=== PATIENT | male | born 1950 | race Caucasian/White ===

== ENCOUNTER → 2022-11-09 09:05 | Outpatient (BNVA) | payer MEDICARE, OTHER, SELFPAY | PROVIDERS: PCP Family Medicine; Visit Provider Family Medicine | DX: R21 Rash and other nonspecific skin eruption (principal); R19.5 Other fecal abnormalities; N40.0 Benign prostatic hyperplasia without lower urinary tract symptoms; R53.83 Other fatigue; E03.9 Hypothyroidism, unspecified | CPT/HCPCS: 80053; 82607; 84153; 84443; 85025 ==

== ENCOUNTER 2022-11-19 13:46 | Outpatient (CLI) | payer MEDICARE, OTHER, SELFPAY ==
--- NOTE | 2022-11-19 14:00 | US_ITS ---
WS: [id number] TESTICULAR ULTRASOUND HISTORY: N50.89 - Other specified disorders of the male genital or... COMPARISON: None available. TECHNIQUE: Real-time and color Doppler imaging or utilized to perform a testicular ultrasound. Right testicle: 3.4 cm x 2.7 cm x 3.2 cm. Normal size and echogenicity. No mass or torsion. Normal color Doppler is present throughout. Systolic and diastolic velocities are both present. No significant hydrocele. Right epididymis: Multiple simple cyst associated with the epididymal head. The largest measures 4.0 x 3.7 x 2.8 cm. No solid mass. No increased vascularity. Left testicle: 3.5 cm x 2.2 cm x 2.2 cm. Normal size and echogenicity. No mass or torsion. Normal color Doppler is present throughout. Systolic and diastolic velocities are both present. No significant hydrocele. Left epididymis: Very small cyst associated with the LEFT epididymal head. IMPRESSION: 1. No testicular mass or torsion. 2. Bilateral epididymal head spermatoceles. Largest associated with the RIGHT epididymis measuring 4. 0 x 3.7 x 2.8 cm. This is probably the palpable nodule described by the patient.
== END 2022-11-19 13:47 | disposition home or self-care (01) ==
PROVIDERS: PCP Family Medicine; Visit Provider Family Medicine
DX: N50.89 Other specified disorders of the male genital organs (principal); N43.42 Spermatocele of epididymis, multiple; N50.3 Cyst of epididymis
CPT/HCPCS: 76870

== ENCOUNTER → 2023-11-05 11:03 | Outpatient (BNVA) | payer MEDICARE, OTHER, SELFPAY | PROVIDERS: PCP Family Medicine; Visit Provider Family Medicine | DX: I10 Essential (primary) hypertension (principal); F41.9 Anxiety disorder, unspecified; Z00.00 Encounter for general adult medical examination without abnormal findings | CPT/HCPCS: 80053; 80061 ==

== ENCOUNTER → 2024-09-07 08:16 | Outpatient (BNVA) | payer MEDICARE, OTHER, SELFPAY | PROVIDERS: PCP Family Medicine; Visit Provider Family Medicine | DX: Z00.00 Encounter for general adult medical examination without abnormal findings (principal) | CPT/HCPCS: 80053; 80061 ==

== ENCOUNTER → 2024-12-14 16:07 | Outpatient (BNVA) | payer MEDICARE, OTHER, SELFPAY | PROVIDERS: PCP Family Medicine; Visit Provider Nurse Practitioner | DX: L08.9 Local infection of the skin and subcutaneous tissue, unspecified (principal); L03.90 Cellulitis, unspecified | CPT/HCPCS: 85025 ==

== ENCOUNTER → 2024-12-18 08:40 | Outpatient (BNVA) | payer MEDICARE, OTHER, SELFPAY | PROVIDERS: PCP Family Medicine; Visit Provider Nurse Practitioner | DX: L03.90 Cellulitis, unspecified (principal); M19.042 Primary osteoarthritis, left hand | CPT/HCPCS: 73130 ==